=== PATIENT | male | born 1955 | race Caucasian/White ===

== ENCOUNTER 2017-09-01 20:26 | Emergency (ER) | payer OTHER ==
[2017-09-01 20:37] VITALS: BP 189/114; PULSE 103; TEMP 98.1; BMI 28.1
--- NOTE | 2017-09-01 20:42 | PDOC ---
History of Present Illness <Nhi Sanchez - Last Filed: 09/01/17 22:51> - History of Present Illness Initial Comments: 09/01/17 21:22 The patient is a 62 year old male with a history of HTN and possible kidney stones who presents for evaluation of right sided flank pain. The patient reports a several hour history of sudden onset sharp/achy right sided flank pain prompting his presentation to the ED for evaluation. The patient states that he had a possible kidney stone on the left several years ago and his pain feels similar to his previous symptoms. A ct scan at that time did not demonstrate any stone, but did show a dilated ureter suggestive of a recently passed stone.He currently denies any fevers, chills, SOB, chest pain, abdominal pain, or changes with bowel movements. He does report one episode of non- bilious, non-bloody vomiting. He denies any burning, pain or blood on urination but does endorse some increased frequency. <David Warren - Last Filed: 09/01/17 23:38> - General Chief Complaint: Pain, Acute Stated Complaint: PAIN, ACUTE Time Seen by Provider: 09/01/17 20:41 Past History <Nhi Sanchez - Last Filed: 09/01/17 22:51> - Past Medical History HTN: Yes Kidney Stones: Yes - Suicide/Smoking/Psychosocial Hx Smoking Status: No Smoking History: Never smoked Have you smoked in the past 12 months: No Number of Cigarettes Smoked Daily: 0 Information on smoking cessation initiated: No Hx Alcohol Use: No Drug/Substance Use Hx: No Substance Use Type: None <David Warren - Last Filed: 09/01/17 23:38> - Past Medical History Allergies/Adverse Reactions: Allergies Allergy/AdvReac Type Severity Reaction Status Date / Time No Known Allergies Allergy Verified 09/01/17 20:34 Home Medications: Ambulatory Orders Losartan Potassium [Cozaar] 25 mg PO DAILY 09/10/13 Metoprolol Tartrate [Lopressor -] 100 mg PO DAILY 09/10/13 Naproxen [Naprosyn -] 500 mg PO BID PRN #20 tablet 09/10/13 Nitrofurantoin Monohyd/M-Cryst [Macrobid -] 100 mg PO BID #14 capsule 09/10/13 Oxycodone HCl/Acetaminophen [Percocet 5-325 mg Tablet] 1 - 2 combo PO Q4H PRN # 20 tablet 09/10/13 Ciprofloxacin [Cipro -] 500 mg PO Q12H #7 tablet 09/01/17 Tamsulosin HCl [Flomax] 0.4 mg PO DAILY #10 capsule 09/01/17 Review of Systems - Review of Systems Comments:: 09/01/17 21:26 Constitutional: No fevers, chills, fatigue, malaise HEENT: No Rhinorrhea, nasal congestion, Cardiovascular: No chest pain, syncope, palpitations, lightheadedness Respiratory: No Cough, SOB, Hemoptysis, Gastrointestinal: Nausea, vomiting. No Abdominal pain, Constipation, Diarrhea, Melena Genitourinary: Right flank pain. Increased frequency. No Dysuria, Urgency, Hesitancy, Hematuria, Musculoskeletal: No Myalgia, arthralgia Skin: No rashes, itching, bruising, pallor Neurologic: No Headache, Dizziness, Numbness, Weakness, or Tingling <David Warren - Last Filed: 09/01/17 23:38> *Physical Exam - Vital Signs Last Vital Signs Temp Pulse Resp BP Pulse Ox 98.1 F 103 H 18 189/114 100 09/01/17 20:31 09/01/17 20:31 09/01/17 20:31 09/01/17 20:31 09/01/17 20:31 <Nhi Sanchez - Last Filed: 09/01/17 22:51> - Vital Signs Last Vital Signs Temp Pulse Resp BP Pulse Ox 98.1 F 103 H 18 189/114 100 09/01/17 20:31 09/01/17 20:31 09/01/17 20:31 09/01/17 20:31 09/01/17 20:31 - Physical Exam Comments: 09/01/17 21:29 General Appearance: Nourished. No Apparent Distress HEENT: EOMI, ERENDIRA. No Pharyngeal Erythema, Tonsillar Exudate, Tonsillar Erythema Neck: No Cervical Lymphadenopathy Respiratory/Chest: Lungs Clear, Normal Breath Sounds. No Crackles, Rales, Rhonchi, Wheezing Cardiovascular: Regular Rhythm, Regular Rate. No Murmur, Gallops, Rubs Gastrointestinal/Abdominal: Normal Bowel Sounds, Soft. No Guarding, Rebound, Tenderness Musculoskeletal: No CVA Tenderness Extremity: Normal Capillary Refill Integumentary: Normal Color, Dry, Warm Neurologic: Fully Oriented, Alert, Normal Mood/Affect, Normal Response, <David Warren - Last Filed: 09/01/17 23:38> ED Treatment Course - LABORATORY CBC & Chemistry Diagram: 09/01/17 21:20 09/01/17 21:20 - ADDITIONAL ORDERS Additional order review: Laboratory Results 09/01/17 09/01/17 21:36 21:20 Sodium 134 L Potassium 5.1 Chloride 103 Carbon Dioxide 23 Anion Gap 8 BUN 36 H Creatinine 2.9 H Creat Clearance w eGFR 22.16 Random Glucose 223 H Calcium 9.2 Total Bilirubin 0.5 AST 33 ALT 34 Alkaline Phosphatase 75 Total Protein 7.4 Albumin 3.6 Urine Color Red Urine Appearance Cloudy Urine pH 6.0 Ur Specific [place] 1.012 Urine Protein 2+ H Urine Glucose (UA) 3+ H Urine Ketones Negative Urine Blood 3+ H Urine Nitrite Negative Urine Bilirubin Negative Urine Urobilinogen Negative Ur Leukocyte Esterase 1+ H Urine RBC 4045 Urine WBC 263 Urine Bacteria Rare Urine Yeast Few 09/01/17 21:20 RBC 3.98 L MCV 90.3 MCHC 35.2 RDW 13.2 MPV 9.4 Neutrophils % 83.7 H Lymphocytes % 7.3 L Monocytes % 7.9 Eosinophils % 0.3 Basophils % 0.8 - Medications Given in the ED: ED Medications Discontinued Medications Generic Name Dose Route Start Last Admin Trade Name Freq PRN Reason Stop Dose Admin Morphine Sulfate 4 mg 09/01/17 20:55 09/01/17 21:21 Morphine Injection - IVPUSH 09/01/17 20:56 4 mg ONCE ONE Administration Ondansetron HCl 4 mg 09/01/17 20:55 09/01/17 21:21 Zofran Injection IVPUSH 09/01/17 20:56 4 mg ONCE ONE Administration <Nhi Sanchez - Last Filed: 09/01/17 22:51> - LABORATORY CBC & Chemistry Diagram: 09/01/17 21:20 09/01/17 21:20 <David Warren - Last Filed: 09/01/17 23:38> Medical Decision Making - Medical Decision Making 09/01/17 22:[address] Arora [phone] <Antwon Sanchezhan A - Last Filed: 09/01/17 22:51> - Medical Decision Making 09/01/17 21:30 The patient is a 62 year old male with a history of HTN and possible kidney stones who presents for evaluation of right sided flank pain. Differential includes but is not limited to: Nephrolithiasis, UTI, pyelonephritis, musculoskeletal, metabolic derangement. Given his symptoms similar to his previous possible kidney stone, it is likely his symptoms are due to nephrolithiasis. However, given that we do not have previous ct confirmation of a stone, we will obtain a ct here to evaluate. We will also send a cbc, cmp , UA to evaluate further and treat his pain with morphine and zofran. We will continue to monitor and reassess. 09/01/17 23:09 cbc demonstrates an elevated wbc to 11.7. cmp was remarkable for an elevated creatinine to 2.9. We discussed with the patient who stated that he has a history of an elevated creatinine and has been following with a automotive technician instructor. UA was remarkable for many rbc and moderate wbc. CT demonstrated many multiple kidney stones bilaterally with associated hydronephrosis as read by our radiologist. We contacted the patient's primary care provider's office who are comfortable with discharge and will have follow up with the patient tomorrow. The patient's pain is improved and under control here in the ED. We will cover him with antibiotics given his elevated wbc and give him follow up with one of our urologists. <David Warren - Last Filed: 09/01/17 23:38> *DC/Admit/Observation/Transfer <SanchezNhi - Last Filed: 09/01/17 22:51> - Discharge Dispostion Admit: No <David Warren - Last Filed: 09/01/17 23:38> Diagnosis at time of Disposition: Kidney stones - Prescriptions Prescriptions: Ciprofloxacin [Cipro -] 500 mg PO Q12H #7 tablet Tamsulosin HCl [Flomax] 0.4 mg PO DAILY #10 capsule - Referrals Referrals: William Arora [Primary Care Provider] - Bharat Jama MD [Staff Physician] - - Patient Instructions Printed Discharge Instructions: DI for Kidney Stones Additional Instructions: Please return to the ER if you experience concerning or worsening symptoms including worsening fevers, chills, or pain. Your creatinine was 2.9 here in the ER today and your CT scan showed multiple kidney stones on both sides. You MUST call your primary care physician tomorrow to see them in the office TOMORROW. We have provided a number of a urologist to follow up with if needed. You may use tylenol at home to help manage your pain and you may discuss further management of your symptoms with your primary care provider tomorrow. We have prescribed you antibiotics as well to you must take over the next 7 days.
--- NOTE | 2017-09-01 20:43 | PDOC ---
Attending Attestation - Resident Resident Name: David Warren - ED Attending Attestation I have performed the following: I have examined & evaluated the patient, The case was reviewed & discussed with the resident, I agree w/resident's findings & plan, Exceptions are as noted - HPI HPI: 09/01/17 22:47 62 yo male rt sided flank pain, vomiting x 1 ,hematuria PMH HTN,kidney stone 2012 PSH none - Physicial Exam PE: 09/01/17 23:35 62 yo male who currently is comfortable had rt flank pain and hematuria earlier HEAD nontraumatic NECK supple EYES ERASMO EOMI LUNGS CTA B/L CVS RRR s1s2 ABD nontender CVA rt flank pain ext no deformities neuro axox3, ambulatory 09/01/17 23:38 - Medical Decision Making 09/01/17 23:[address] Arora's covering physician who will see this pt tomorrow in hte office -CR was elevated 2.9 The pt has recently seen a sleeve turner because of this createnine elevation. -Ct scan shows multiple stoneds in kidney and in ureters,none are obstructing at this time
[2017-09-01] MEDS ORDERED: morphine CARPU-JECT 4 MG/1 ML DISP.SYRIN IVPUSH ONE (20:55)
[2017-09-01] MEDS ORDERED: ONDANSETRON 4 MG/2 ML VIAL IVPUSH ONE (20:55)
[2017-09-01] MEDS ORDERED: ONDANSETRON 4 MG/2 ML VIAL ONE (21:09)
[2017-09-01] MEDS ORDERED: morphine CARPU-JECT 8 MG/1 ML DISP.SYRIN ONE (21:09)
[2017-09-01 21:26] LABS: BASOPHIL 0.8 % (0-2.0); EOSINOPHIL 0.3 % (0-4.5); MCH 31.8 pg (25.7-33.7); MCHC 35.2 g/dl (32.0-35.9); MEAN CELL VOLUME 90.3 fl (80-96); MEAN PLT VOLUME 9.4 fl (7.5-11.1); NEUTROPHILS 83.7 % (42.8-82.8); PLATELET COUNT 213 K/MM3 (134-434); RDW 13.2 % (11.9-15.9); WHITE BLOOD COUNT 11.6 K/mm3 (4.0-10.0)
[2017-09-01 21:50] LABS: ALBUMIN 3.6 g/dl (3.4-5.0); ANION GAP 8 (8-16); CALCIUM 9.2 mg/dL (8.5-10.1); CO2 23 mmol/L (21-32); CREATININE 2.9 mg/dL (0.7-1.3); GLUCOSE,RANDOM 223 mg/dL (74-106); SGPT/ALT 34 U/L (12-78)
[2017-09-01 21:50] LABS: URINE APPEARANCE CLOUDY; URINE BILIRUBIN NEGATIVE (NEGATIVE); URINE BLOOD 3+ (NEGATIVE); URINE COLOR RED; URINE GLUCOSE (UA) 3+ (NEGATIVE); URINE KETONE NEGATIVE (NEGATIVE); URINE NITRITE NEGATIVE (NEGATIVE); URINE UROBILINOGEN NEGATIVE mg/dL (0.2-1.0)
[2017-09-01 21:51] LABS: ALK PHOS 75 U/L (45-117); BILIRUBIN,TOTAL 0.5 mg/dL (0.2-1.0); TOT PROT 7.4 g/dl (6.4-8.2)
[2017-09-01 21:52] LABS: SGOT/AST 33 U/L (15-37)
[2017-09-01 21:54] LABS: URINE PROTEIN 2+ (NEGATIVE)
[2017-09-01 21:55] LABS: URINE BACTERIA RARE /hpf (NONE SEEN); URINE RBC 4045 /hpf (0-3); URINE WBC 263 /hpf (3-5); YEAST FEW
[2017-09-01 22:49] LABS: URINE LEUK ESTERASE 1+ (NEGATIVE)
[2017-09-01] MEDS ORDERED: CIPROFLOXACIN 500 MG TABLET (RESTRICTED TO ID) PO ONE (23:07)
[2017-09-01] MEDS ORDERED: KETOROLAC TROMETHAMINE 30 MG/1 ML VIAL IVPUSH ONE (23:07)
[2017-09-01] MEDS ORDERED: TAMSULOSIN HCL 0.4 MG CAP.ER.24H (FP) PO ONE (23:07)
[2017-09-01] MEDS ORDERED: KETOROLAC TROMETHAMINE 30 MG/1 ML VIAL ONE (23:09)
[2017-09-01] MEDS ORDERED: TAMSULOSIN HCL 0.4 MG CAP.ER.24H (FP) ONE (23:09)
[2017-09-01] MEDS ORDERED: SODIUM CHLORIDE 1,000 ML IV STA (23:15)
== END 2017-09-02 00:45 | disposition home or self-care (01) ==
LOC: JER 20:26
PROC: 3E033NZ Introduction of Analgesics, Hypnotics, Sedatives into Peripheral Vein, Percutaneous Approach (ICD-10-PCS; principal; 2017-09-01)
PROC: 3E033GC Introduction of Other Therapeutic Substance into Peripheral Vein, Percutaneous Approach (ICD-10-PCS; 2017-09-01)
PROC: 3E0333Z Introduction of Anti-inflammatory into Peripheral Vein, Percutaneous Approach (ICD-10-PCS; 2017-09-01)
DX: N13.2 Hydronephrosis with renal and ureteral calculous obstruction (principal); Z87.442 Personal history of urinary calculi; I10 Essential (primary) hypertension
CPT/HCPCS: 36415; 74176; 80053; 81003; 81015; 85025; 87086; 99283-25